=== PATIENT | male | born 1995 | race Caucasian/White ===

== ENCOUNTER 2020-12-28 14:27 | Emergency (ER) | payer MEDICAID, SELFPAY ==
[2020-12-28 14:32] VITALS: BP 161/92; PULSE 58; RESP 16; TEMP 36.4; O2SAT 97; BMI 40.4
[2020-12-28 15:35] VITALS: BP 150/85; PULSE 49; RESP 16; TEMP 36.6; O2SAT 97
--- NOTE | 2020-12-28 16:35 | ED.DENTAL ---
HPI - Dental/Oral General Chief complaint: Dental/Oral Stated complaint: DENTAL PAIN Time Seen by Provider: 12/28/20 15:33 Source: patient Mode of arrival: ambulatory History of Present Illness HPI Narrative: 25-year-old male with no significant past medical history presenting to the ED complaining of left lower dental pain/swelling with possible abscess x months but worsening over the past week. Denies difficulty swelling/handling secretions, fever, chills, drainage from area, ear pain MD Complaint: tooth pain Related Data Previous Rx's Medication Instructions Recorded clindamycin HCl 450 mg PO Q8H 7 Days #32 cap 12/28/20 Allergies Allergy/AdvReac Type Severity Reaction Status Date / Time penicillin V Allergy Unknown Verified 09/07/16 00:00 Review of Systems Review of Systems: Constitutional: No Fever, No Chills ENT/Mouth: No Hearing loss, No Ear Pain, No Sinus Pain, No Hoarseness, No sore throat, No Swallowing Difficulty, +dental pain/abscess Eyes: No Eye Pain, No Discharge, No Vision Changes Cardiovascular: No Chest Pain, No SOB Respiratory: No Cough, No Dyspnea Musculoskeletal: No joint pain, No Myalgias, No Joint Swelling Skin: No Skin Lesions, No rash Neuro: No Weakness, No Numbness, No Headache Yes all other systems are reviewed and are negative PMFSH Past Medical History Attestation statement: The following information was validated with the patient. Surgical History (Updated 12/28/20 @ 14:36 by Yday Valenzuela) History of tonsillectomy and adenoidectomy Social History Social History Smoking Status: Current every day smoker Use of substances other than those prescribed or required for medical reasons: No Advance Directives: No Advance Directives Information Provided: No Physical Exam Vital Signs: Vital Signs: Last Vital Signs Temp 97.8 F 12/28/20 15:35 Pulse 49 L 12/28/20 15:35 Resp 16 12/28/20 15:35 BP 150/85 H 12/28/20 15:35 Pulse Ox 97 12/28/20 15:35 Body Mass Index 40.4 Const: General: cooperative, healthy appearing, well developed, alert, awake and Physically active Orientation/consciousness: patient oriented x3 Limitations: no limitations HENMT: Other: + fluctuant dental abscess between 1st and 2nd premolar, no surrounding cellulitis/gingivitis. No drainage Head: Yes normal to inspection and Yes atraumatic Ears: hearing grossly normal bilaterally General nose exam: Normal external nose present Face and sinus: Yes normal facial exam Mouth: Normal oral and palatal mucosa present Throat: Yes posterior oropharynx normal, Yes tonsils normal and Yes uvula midline Eyes: General: appearance normal, both eyes and all related structures EOM: EOMs intact bilaterally Neck: Neck: Yes normal visual inspection, Yes no lymphadenopathy and Yes no meningeal signs Resp: Effort & Inspection: normal respiratory effort Cardio: Rate: regular rate Skin: Rashes: no rashes Wounds: no wounds Neuro: General: patient oriented x3 and no meningeal signs Gait exam (Neuro): Normal gait present Extrem: General: Yes normal to inspection Course Course Course Narrative: -1630--patient's abscess popped on its own spontaneously in the ED. no longer pointing. Still mild fluctuance, milked area with bloody drainage > drained with needle aspiration with out pus. Will initiate patient on antibiotics, close dental follow-up, worrisome signs and symptoms and strict return precautions discussed. MDM - Dental/Oral MDM Narrative Medical decision making narrative: 25-year-old male with no significant past medical history presenting to the ED complaining of left lower dental pain/swelling with possible abscess x months but worsening over the past week. On exam VSS, NAD/well-appearing, dental abscess noted on left lower between 1st and 2nd premolar. Will I&D Medical Records Attestation: I reviewed the patient's medical records. Discharge Plan Discharge Clinical Impression: Dental abscess Patient Disposition: Home, Self-Care Instructions: Dental Abscess (ED) Additional Instructions: Your abscess was aspirated today in the ED with a needle, and also popped on its own, and it is normal for her to continue to slightly drain for the next 24-48 hours Practice warm salt water rinses, keep milking area to express pus/drainage Clindamycin as an antibiotic, take as prescribed If area worsens/grows, and fever/chills, or swelling in the mouth please return to the ED You need to follow-up with a dentist Prescriptions: New clindamycin HCl 300 mg capsule 450 mg PO Q8H 7 Days Qty: 32 RF: 0 Referrals: Faustina White DMD [Dentist] - 2 days Reyes Quevedo DDS [Physician] - 2 days
== END 2020-12-28 17:01 | disposition home or self-care (01) ==
PROVIDERS: Emergency Provider Emergency Medicine Emergency Medical Services
DX: K04.7 Periapical abscess without sinus (principal)
CPT/HCPCS: 41800; 99284